=== PATIENT | male | born 1990 | race Two or more races ===

== ENCOUNTER 2018-08-12 00:48 | Emergency (ER) | payer SELFPAY ==
[2018-08-12] MEDS ORDERED: Diphtheria,Pertussis(Acell),Tetanus Vaccine 0.5 ML SDV IM ONE (00:58)
[2018-08-12] MEDS ORDERED: Lidocaine/EPINEPHrine/Tetracaine Soln 1 ML TOP STA (01:07)
--- NOTE | 2018-08-12 01:15 | EDM.PDOC ---
ED HPI GENERAL MEDICAL PROBLEM - General Chief Complaint: Laceration Stated Complaint: CUT RIGHT WRIST Time Seen by Provider: 08/12/18 00:57 Source of Information: Reports: Patient, RN Notes Reviewed History Limitations: Reports: No Limitations - History of Present Illness INITIAL COMMENTS - FREE TEXT/NARRATIVE: The patient states that he had just finished sharpening a knife, and was trying to put it back together, when it slipped, cutting the patient over his distal ulna, about 10 minutes [employer]. He is otherwise uninjured. The patient acknowledges that he drinks daily, and that he had 2 x 40 oz malt liquors prior to this injury. The patient is not sure when his last tetanus vaccination was. The patient does not have a PCP. Right Wrist Pain Score (Numeric/FACES): 4 - Related Data Allergies Allergy/AdvReac Type Severity Reaction Status Date / Time No Known Allergies Allergy Verified 08/12/18 00:57 Home Meds: Home Meds . [No Known Home Meds] 08/12/18 [History] Past Medical History Musculoskeletal History: Reports: Fracture (right 5th metacarpal (boxer fx)) Psychiatric History: Reports: ADHD Social & Family History - Tobacco Use Smoking Status *Q: Current Every Day Smoker Years of Tobacco use: 11 Packs/Tins Daily: 0.5 - Caffeine Use Caffeine Use: Reports: None - Alcohol Use Alcohol Use History: Yes Days Per Week of Alcohol Use: 7 Number of Drinks Per Day: 8 Total Drinks Per Week: 56 Alcohol Use Frequency: Daily - Recreational Drug Use Recreational Drug Use: Yes Drug Use in Last 12 Months: Yes Recreational Drug Type: Reports: Marijuana/Hashish Recreational Drug Use Frequency: Daily Recreational Drug Last Use: Stopped smoking MJ May 2018 in order to land his current job - Living Situation & Occupation Living situation: Reports: , with Spouse, with Family (2 kids + 's grandmother) Occupation: Employed ([employer]) ED ROS GENERAL - Review of Systems Review Of Systems: ROS reveals no pertinent complaints other than HPI. ED EXAM, SKIN/RASH Exam: See Below Exam Limited By: No Limitations General Appearance: Alert, WD/WN, No Apparent Distress Extremities: Other (There is an approximately 2 cm curvilinear laceration over the patient's distal right ulna. The wound is clean, and not currently bleeding. ) ED SKIN PROCEDURES - Laceration/Wound Repair Right Wrist Lac/Wound length In cm: 2.0 Appearance: Subcutaneous, Irregular (Curvilinear), Clean Distal NVT: Neuro & Vascular Intact, No Tendon Injury Anesthetic Type: Topical (LET) Skin Prep: Providone-Iodine (Betadine) Exploration/Debridement/Repair: Wound Explored, In a Bloodless Field, Explored to Base, No Foreign Material Found, Wound Margins Revised Closed with: Sutures Suture Size: 3-0 # of Sutures: 5 Suture Type: Nylon (Ethilon), Interrupted, Simple Sterile Dressing Applied: Nurse Tetanus Status Addressed: Yes Complications: No Course - Vital Signs Last Recorded V/S: Last Vital Signs Temp 36.3 C 08/12/18 00:54 Pulse 87 08/12/18 00:54 Resp 18 08/12/18 00:54 BP 150/91 H 08/12/18 00:54 Pulse Ox 98 08/12/18 00:54 - Orders/Labs/Meds Orders: Active Orders 24 hr Category Date Time Status Vaccines to be Administered [RC] PER UNIT ROUTINE Care 08/12/18 00:58 Active Meds: Medications Discontinued Medications Generic Name Dose Route Start Last Admin Trade Name Andrey PRN Reason Stop Dose Admin Bupivacaine HCl 10 ml 08/12/18 01:41 Sensorcaine-Mpf 0.5% INJECT 08/12/18 01:42 ONETIME ONE Diphtheria/Tetanus/Acell Pertussis 0.5 ml 08/12/18 00:58 08/12/18 01:07 Adacel IM 08/12/18 00:59 0.5 ml .ONCE ONE Administration Lidocaine HCl Confirm 08/12/18 01:41 Xylocaine-Mpf 1% Administered 08/12/18 01:42 Dose 30 ml .ROUTE .STK-MED ONE Lidocaine/Epinephrine 20 ml 08/12/18 01:41 Xylocaine 1% With Epinephrine 1:100,000 INJECT 08/12/18 01:42 ONETIME ONE Lidocaine/Tetracaine 2 ml 08/12/18 01:07 08/12/18 01:14 Let Soln TOP 08/12/18 01:08 2 ml ONETIME STA Administration - Re-Assessments/Exams Free Text/Narrative Re-Assessment/Exam: 08/12/18 01:19 Topical LET will be applied to the wound for anesthesia prior to suturing. The patient will receive a tetanus vaccination during this ED visit. 08/12/18 02:51 Following adequate anesthesia with topical LET, the patient received 5 simple interrupted sutures to approximate the wound edges. The patient tolerated procedure well. The patient appears to be significantly intoxicated. While waiting for the LET to take effect, the patient has fallen asleep, and is arousable, but only with difficulty. I'm told that he drove himself here, but he clearly cannot drive himself home. We will endeavor to find arrangements to get him home. Departure - Departure Time of Disposition: 02:53 Disposition: Home, Self-Care 01 Condition: Fair Clinical Impression: Laceration of right wrist, Alcohol intoxication, Alcohol abuse - Discharge Information *PRESCRIPTION DRUG MONITORING PROGRAM REVIEWED*: Not Applicable *COPY OF PRESCRIPTION DRUG MONITORING REPORT IN PATIENT ELA: Not Applicable Referrals: PCP,None [Primary Care Provider] - Forms: ED Department Discharge Additional Instructions: You were seen in the emergency room after accidentally cutting your right wrist. You received a tetanus vaccination in the ER. Your wound was closed with 5 sutures. Keep the wound clean with ordinary soap and water, pat dry, then cover with a clean bandage, daily. If the bandage should become wet or dirty, re-clean the wound can apply a new clean bandage. The sutures should be ready for removal on or about 08/20/2018. This can be done at a walk-in clinic, by a nurse at your doctor's office, or in the ER. You were found to be significantly intoxicated, and admitted to daily alcohol consumption. We STRONGLY recommend that you seek professional help to stop drinking, at [facility]: [address] [phone] If any other problems, please do not hesitate to return to the ER. - My Orders Last 24 Hours: My Active Orders 08/12/18 00:58 Vaccines to be Administered [RC] PER UNIT ROUTINE - Assessment/Plan Last 24 Hours: My Active Orders 08/12/18 00:58 Vaccines to be Administered [RC] PER UNIT ROUTINE
[2018-08-12] MEDS ORDERED: Lidocaine 1% with EPINEPHrine 1:100,000 20 ML MDV INJECT ONE (01:41)
[2018-08-12] MEDS ORDERED: Lidocaine 1% 30 ML SDV ONE (01:41)
[2018-08-12] MEDS ORDERED: Bupivacaine 0.5% 10 ML SDV INJECT ONE (01:41)
== END 2018-08-12 03:00 | disposition home or self-care (01) ==
LOC: JD.ED 00:48
DX: S61.511A Laceration without foreign body of right wrist, initial encounter (principal); F10.129 Alcohol abuse with intoxication, unspecified; F17.210 Nicotine dependence, cigarettes, uncomplicated; Z23 Encounter for immunization; W26.0XXA Contact with knife, initial encounter
CPT/HCPCS: 12001; 90471; 90715; 99283; A9270